=== PATIENT | female | born 1950 | race Caucasian/White ===

== ENCOUNTER 2023-03-03 13:34 | Outpatient (AMB) | payer MEDICARE, SELFPAY ==
--- NOTE | 2023-03-03 14:15 | A.OFFVIS_ITS ---
Intake Intake Visit Reasons: sacroiliac joint pain Assessment & Plan Assessment & Plan (1) Chronic SI joint pain: Code(s): M53.3 - Sacrococcygeal disorders, not elsewhere classified; G89.29 - Other chronic pain Plan Dear Dr Wiggins, Thank you for referring Mrs Rodriges to our office today. She is very nice 72-year-old female who has had 40 years of pain over the left sacroiliac joint. It all began when she had carried a very large baby to term and after delivery noticed pain and over her left SI joint. Through the years she generally just treated it with tincture of time, activity modifications. Eventually started to escalate over time and she treated with physical therapy and acupuncture. These things may have helped a little but not completely. Who over the last few years, she started to notice it whenever she gets out of a chair, whenever she is trying to get in bed, or when she is standing in 1 spot for any length of time or walking. She has no radicular pain going down her legs. She has no midline low back pain. She has taken [id number] pain medications as needed. She cannot take anti-inflammatories because of her history of vascular disease and she is on dual anti-platelet therapy. She underwent 2 injections into the left SI joint your office and had 100% relief for few days. She was sent today for evaluation of SI joint fusion. 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 She has had a carotid endarterectomy, heart attack with a coronary stent about 13 years ago or so, as well as a stent in her carotid artery. She has a history of high cholesterol, mild asthma, cataract surgery, partial amputation of the 2nd toe, cholecystectomy, salpingectomy, oophorectomy, abdominal plasty lumbar laminectomy, hysterectomy, blepharoplasty carpal tunnel surgery rotator cuff repair urethral sling parotidectomy Social hx: She does not smoke Medications: Soma Cymbalta fexofenadine in his heme pseudoephedrine Flonase Plavix Crestor aspirin pantoprazole metformin albuterol inhaler Voltaren glimepiride Creon Lomotil Imodium a dental trauma on Tylenol melatonin Prolia Allergies: Rogaine, Cipro, Niaspan, hydroxy quinolone, adhesives, nickel, menthol and capsaicin as well as environmental allergies Physical exam: Awake alert oriented no acute distress, slow to get up from arising position, strength in the bilateral lower extremities is intact, positive finger Annabelle test, positive compression test of the left SI joint, positive left KAY sign inducing SI joint pain. Imaging review: No imaging to review Impression: 72-year-old female with a 40 year history of chronic left SI joint pain after she carried a very heavy baby in utero and after she gave noticed the pain progressively getting worse over the last few decades. The last few years have been quite difficult. She has significant pains when she stands and walks for any length of time. She also has discomfort getting in and out of bed. She is okay when she is sitting. She has many of the normal provocative signs for SI joint inflammation as well as 2 SI joint blocks giving her 100% relief for 2 days. Typically this is something Dr. Pimentel would offer her left SI joint fusion. We discussed the risks and benefits of surgery. She understands she will have to be off her Plavix for 10 days leading up to surgery. She will need a clearance note from her plant safety engineer/PCP. I am going to get a set of lumbar x-rays as well as SI joint x-rays just to understand her anatomy little better and will call her once I have finalized the plan with Dr. Pimentel. Pt was given risk and benefits of surgery including but not limited to infection, hematoma , nerve injury,durotomy, weakness,bowel/bladder injury, persistent pain, as well as the option to continue with conservative treatment and patient wishes to proceed with surgery. Pt is aware they should stop their motrin, aspirin 7 days prior to surgery. All questions were answered to the best of our ability. If there is anything about this patients medical history that we have overlooked or concerns you have about us proceeding with surgery we would appreciate any input you can offer. Thank you for allowing us to care for your patient. The total time spent with this visit with this patient was 45 minutes reviewing history, physical exam, ordering, and implementation of treatment plan or further diagnostic testing Raphael Pimentel MD,PhD [facility] Orders: Orders XR lumbar spine 4V min Today G89.29 - Other chronic pain, M53.3 - Sacrococcygeal disorders, not elsewhere classified XR pelvis min 3V Today G89.29 - Other chronic pain, M53.3 - Sacrococcygeal di sorders, not elsewhere classified Coding Level of Care Code New Pt Level 4 (54499) Diagnoses Chronic SI joint pain M53.3; G89.29
== END 2023-03-03 14:16 | disposition home or self-care (01) ==
PROVIDERS: Referring Provider Physical Medicine & Rehabilitation; Visit Provider Physician Assistant
DX: M53.3 Sacrococcygeal disorders, not elsewhere classified (principal); G89.29 Other chronic pain
CPT/HCPCS: 99204

== ENCOUNTER 2023-03-03 13:34 | Outpatient (REF) | payer MEDICARE, SELFPAY | END 2023-03-03 13:35 | disposition home or self-care (01) | LOC: HO.HOSX 13:34 | PROVIDERS: Visit Provider Physician Assistant | DX: Z13.89 Encounter for screening for other disorder (principal) | CPT/HCPCS: 99202 ==

== ENCOUNTER 2023-03-03 14:22 | Outpatient (REF) | payer MEDICARE, SELFPAY ==
--- NOTE | ~2023-03-03 | XR_ITS ---
EXAMINATION: XR pelvis, XR lumbar spine CLINICAL INFORMATION: Reason for Exam M53.3 - Sacrococcygeal disorders, not elsewhere classified COMPARISON: None TECHNIQUE: 5 views of the lumbar spine. One view of the pelvis. FINDINGS: 5 nonrib-bearing lumbar-type vertebral bodies. Vertebral body heights are maintained. Levoconvex curvature of the lumbar spine. Advanced multilevel degenerative disc disease with loss of disc space height and facet arthropathy. Atherosclerotic calcifications of the abdominal aorta. Amorphous foci of high density overlying the upper abdomen best appreciated on the oblique views, of uncertain etiology, possibly ingested bowel contents, consider follow-up dedicated KUB radiographs. Mild osteoarthritis of the hips with small acetabular osteophytes. Sclerosis and loss of joint space involving the pubic symphysis which may reflect sequela of osteitis pubis. Surgical clip in the pelvis. XR/XR pelvis min 3V IMPRESSION: 1. Levoconvex curvature of the lumbar spine. Advanced multilevel degenerative disc disease with loss of disc space height and facet arthropathy. 2. Mild osteoarthritis of the hips with small acetabular osteophytes. 3. Sclerosis and loss of joint space involving the pubic symphysis which may reflect sequela of osteitis pubis. 4. Amorphous foci of high density overlying the upper abdomen best appreciated on the oblique views, of uncertain etiology, possibly ingested bowel contents, consider follow-up dedicated KUB radiographs.
--- NOTE | ~2023-03-03 | XR_ITS ---
EXAMINATION: XR pelvis, XR lumbar spine CLINICAL INFORMATION: Reason for Exam M53.3 - Sacrococcygeal disorders, not elsewhere classified COMPARISON: None TECHNIQUE: 5 views of the lumbar spine. One view of the pelvis. FINDINGS: 5 nonrib-bearing lumbar-type vertebral bodies. Vertebral body heights are maintained. Levoconvex curvature of the lumbar spine. Advanced multilevel degenerative disc disease with loss of disc space height and facet arthropathy. Atherosclerotic calcifications of the abdominal aorta. Amorphous foci of high density overlying the upper abdomen best appreciated on the oblique views, of uncertain etiology, possibly ingested bowel contents, consider follow-up dedicated KUB radiographs. Mild osteoarthritis of the hips with small acetabular osteophytes. Sclerosis and loss of joint space involving the pubic symphysis which may reflect sequela of osteitis pubis. Surgical clip in the pelvis. XR/XR lumbar spine 4V min IMPRESSION: 1. Levoconvex curvature of the lumbar spine. Advanced multilevel degenerative disc disease with loss of disc space height and facet arthropathy. 2. Mild osteoarthritis of the hips with small acetabular osteophytes. 3. Sclerosis and loss of joint space involving the pubic symphysis which may reflect sequela of osteitis pubis. 4. Amorphous foci of high density overlying the upper abdomen best appreciated on the oblique views, of uncertain etiology, possibly ingested bowel contents, consider follow-up dedicated KUB radiographs.
== END 2023-03-03 14:23 | disposition home or self-care (01) ==
LOC: HO.XRAY 14:22
PROVIDERS: Visit Provider Physician Assistant
DX: M53.3 Sacrococcygeal disorders, not elsewhere classified (principal); G89.29 Other chronic pain
CPT/HCPCS: 72110; 72190; 99202